=== PATIENT | female | born 1950 | race Caucasian/White ===

== ENCOUNTER 2020-10-02 04:43 | Emergency (ER) | payer MEDICARE, OTHER ==
--- NOTE | 2020-10-02 05:33 | EDM.PDOC ---
ED HPI GENERAL MEDICAL PROBLEM - General Chief Complaint: Flank Pain Stated Complaint: RIGHT SIDE PAIN Time Seen by Provider: 10/02/20 05:02 Source of Information: Reports: Patient History Limitations: Reports: No Limitations - History of Present Illness INITIAL COMMENTS - FREE TEXT/NARRATIVE: Alicia is a 70-year-old female presenting to the ED for evaluation of acute on chronic low back pain. Tonight she was experiencing severe low back pain and right flank pain that was preventing her from sleeping. She initially took 2 Tylenol without any improvement and then took 2 ibuprofen with marked improvement in her symptoms. Alicia is been spending a lot of time sleeping on couches and hard furniture while she cares for her ailing who has multiple medical problems. She is also been quite stressed with his condition and care and makes multiple trips between home and [facility], [facility], and [facility] for his ongoing care of the nephrostomy tube and indwelling [place] catheter. She is quite stressed with all of this and has not really been taken time to take care of herself. Yesterday was the first day that they did not have to travel to one of the hospitals or clinics. That has been since August 24 of this year. She denies any injury although she helps her get around at home. She denies any fever, chills, cough or shortness of breath, nausea, vomiting, or diarrhea, new onset of numbness, tingling, weakness in the arms or legs, urinary symptoms including hematuria, urgency, frequency, or burning with urination. Again she has been under considerable stress due to the medical situation with her . In conversation, she reports that she is simply exhausted. Right Flank Pain Score (Numeric/FACES): 6 - Related Data Allergies Allergy/AdvReac Type Severity Reaction Status Date / Time aspirin [From Percodan] Allergy Dizziness Verified 10/02/20 04:56 oxycodone HCl [From Percodan] Allergy Dizziness Verified 10/02/20 04:56 oxycodone terephthalate Allergy Dizziness Verified 10/02/20 04:56 [From Percodan] Home Meds: Home Meds Acetaminophen [Tylenol] 2 tab PO ASDIRECTED 02/23/14 [History] Hydrochlorothiazide 12.5 mg PO DAILY 02/23/14 [History] lisinopriL [Prinivil] 20 mg PO DAILY 02/23/14 [History] Cyclobenzaprine [Flexeril] 10 mg PO TID PRN #15 tablet 10/02/20 [Rx] Past Medical History Cardiovascular History: Reports: Hypertension Social & Family History - Tobacco Use Tobacco Use Status *Q: Former Tobacco User Used Tobacco, but Quit: Yes Month/Year Tobacco Last Used: 2009 - Caffeine Use Caffeine Use: Reports: Coffee, Soda - Recreational Drug Use Recreational Drug Use: No ED ROS GENERAL - Review of Systems Review Of Systems: See Below Constitutional: Reports: Other (Not sleeping well at nights) HEENT: Reports: No Symptoms Respiratory: Reports: No Symptoms Cardiovascular: Reports: No Symptoms Endocrine: Reports: No Symptoms GI/Abdominal: Reports: No Symptoms : Reports: Flank Pain Musculoskeletal: Reports: Back Pain (Low back and right flank) Skin: Reports: No Symptoms Neurological: Reports: No Symptoms Psychiatric: Reports: Anxiety Hematologic/Lymphatic: Reports: No Symptoms Immunologic: Reports: No Symptoms ED EXAM,LOWER BACK PAIN/INJURY - Physical Exam Exam: See Below Exam Limited By: No Limitations General Appearance: Alert, No Apparent Distress Eye Exam: Bilateral Eye: EOMI, PERRL Head: Atraumatic, Normocephalic Neck: Normal Inspection Respiratory/Chest: No Respiratory Distress, Lungs Clear, Normal Breath Sounds Cardiovascular: Normal Peripheral Pulses, Regular Rate, Rhythm, No Murmur GI/Abdominal: Normal Bowel Sounds, Soft, Non-Tender Back Exam: Full Range of Motion, Vertebral Tenderness (Mild tenderness at L5- S1). No: CVA Tenderness (R), CVA Tenderness (L), Muscle Spasm, Paraspinal Tenderness Extremities: Normal Inspection, Normal Range of Motion Neurological: Alert, Normal Mood/Affect, Normal Dorsiflexion, Normal Plantar Flexion, Normal Gait, No Motor/Sensory Deficits, Oriented x 3 Psychiatric: Anxious Skin Exam: Warm, Dry Course - Vital Signs Last Recorded V/S: Last Vital Signs Temp 36.7 C 10/02/20 04:54 Pulse 85 10/02/20 04:54 Resp 20 10/02/20 04:54 BP 179/108 H 10/02/20 04:54 Pulse Ox 97 10/02/20 04:54 - Orders/Labs/Meds Orders: Active Orders 24 hr Category Date Time Status UA W/MICROSCOPIC [URIN] Stat Lab 10/02/20 05:02 Ordered Labs: Laboratory Tests 10/02/20 10/02/20 Range/Units 05:33 05:33 WBC 9.6 (4.5-11.0) K/uL RBC 4.65 (3.30-5.50) M/uL Hgb 14.6 (12.0-15.0) g/dL Hct 45.0 (36.0-48.0) % MCV 97 (80-98) fL MCH 31 (27-31) pg MCHC 32 (32-36) % Plt Count 264 (150-400) K/uL Neut % (Auto) 73.0 H (36-66) % Lymph % (Auto) 18.6 L (24-44) % [place] % (Auto) 7.2 H (2-6) % Eos % (Auto) 0.9 L (2-4) % Baso % (Auto) 0.3 (0-1) % Sodium 143 (140-148) mmol/L Potassium 4.1 (3.6-5.2) mmol/L Chloride 106 (100-108) mmol/L Carbon Dioxide 24 (21-32) mmol/L Anion Gap 13.0 (5.0-14.0) mmol/L BUN 23 H (7-18) mg/dL Creatinine 0.9 (0.6-1.0) mg/dL Est Cr Clr Drug Dosing 49.82 mL/min Estimated GFR (MDRD) > 60 (>60) Glucose 116 H (74-106) mg/dL Calcium 9.3 (8.5-10.1) mg/dL Total Bilirubin 0.7 (0.2-1.0) mg/dL AST 21 (15-37) U/L ALT 29 (12-78) U/L Alkaline Phosphatase 83 (46-116) U/L Total Protein 6.6 (6.4-8.2) g/dL Albumin 3.6 (3.4-5.0) g/dL Globulin 3.0 (2.3-3.5) g/dL Albumin/Globulin Ratio 1.2 (1.2-2.2) - Re-Assessments/Exams Free Text/Narrative Re-Assessment/Exam: 10/02/20 06:42 I reviewed [facility] labs showing a normal CBC and comprehensive metabolic panel. We were not able to get urine from her, however, she has no CVA tenderness to percussion and has not had any urinary symptoms. I think all in all her pain is due to poor sleeping hygiene, exhaustion from caring for her who is medically unwell, and stress of having to have repeated trips to hospitals and doctors offices daily for the last 2 months. I will give her a small amount of cyclobenzaprine for the muscle spasm in her low back. This may also help her get some sleep. Her son is in from [place] and is helping in the care of the house and of [facility]. Occasions return to the ED were discussed and she was discharged in satisfactory condition. Departure - Departure Time of Disposition: 06:45 Disposition: Home, Self-Care 01 Clinical Impression: Stress reaction, Exhaustion Low back pain Qualifiers: Chronicity: unspecified Back pain laterality: midline Sciatica presence: without sciatica Qualified Code(s): M54.5 - Low back pain - Discharge Information Instructions: Fatigue, Acute Back Pain, Adult Referrals: PCP,None [Primary Care Provider] - Forms: ED Department Discharge Care Plan Goals: I hope that you get some rest and start to take care of yourself. I understand male and is under a great deal of medical care right now and this is putting a toll on you. I have enclosed a prescription for cyclobenzaprine which is a muscle relaxant that may also help you with some sleep. Continue to take the Tylenol and ibuprofen as before as needed. Good luck in God bless. Sepsis Event Note (ED) - Evaluation Sepsis Screening Result: No Definite Risk - Focused Exam Vital Signs: Vital Signs Temp Pulse Resp BP Pulse Ox 10/02/20 04:54 36.7 C 85 20 179/108 H 97 - Problem List & Annotations (1) Exhaustion SNOMED Code(s): 25459664 Code(s): R53.83 - OTHER FATIGUE Status: Acute Priority: Medium Current Visit: Yes (2) Low back pain SNOMED Code(s): 719361422 Code(s): M54.5 - LOW BACK PAIN Status: Acute Priority: Medium Current Visit: Yes Qualifiers: Chronicity: unspecified Back pain laterality: midline Sciatica presence: without sciatica Qualified Code(s): M54.5 - Low back pain (3) Stress reaction SNOMED Code(s): 43443562 Code(s): F43.0 - ACUTE STRESS REACTION Status: Acute Priority: Medium Current Visit: Yes - Problem List Review Problem List Initiated/Reviewed/Updated: Yes - My Orders Last 24 Hours: My Active Orders 10/02/20 05:02 UA W/MICROSCOPIC [URIN] Stat - Assessment/Plan Last 24 Hours: My Active Orders 10/02/20 05:02 UA W/MICROSCOPIC [URIN] Stat
== END 2020-10-02 06:58 | disposition home or self-care (01) ==
LOC: JP.ED 04:43
DX: M54.5 Low back pain (principal); R53.83 Other fatigue; F43.9 Reaction to severe stress, unspecified; I10 Essential (primary) hypertension; Z88.5 Allergy status to narcotic agent; Z88.8 Allergy status to other drugs, medicaments and biological substances; Z79.899 Other long term (current) drug therapy; Z87.891 Personal history of nicotine dependence
CPT/HCPCS: 36415; 80053; 85025; 99283; 99284

== ENCOUNTER 2022-03-18 15:04 | Emergency (ER) | payer OTHER ==
[2022-03-18 17:59] LABS: ESTIMATED GFR 59 mL/min (>60); TROPONIN I HIGH SENSITIVITY 25.5 pg/mL (<=60.3)
[2022-03-18] MEDS ORDERED: Potassium Chloride 10 MEQ in Premix Bag 1 BAG IV ONE (18:09)
[2022-03-18] MEDS ORDERED: Potassium Chloride 20 MEQ Tab.ER PO ONE (18:09)
[2022-03-18] MEDS ORDERED: Sodium Chloride 0.9% 1,000 ML IV SCH (18:15)
[2022-03-18 19:46] LABS: CORONAVIRUS COVID-19 NAA NEGATIVE (NEGATIVE)
== END 2022-03-18 20:51 | disposition home or self-care (01) ==
LOC: JP.ED 15:04
DX: N30.00 Acute cystitis without hematuria (principal); E87.6 Hypokalemia; I10 Essential (primary) hypertension; Z87.891 Personal history of nicotine dependence; Z88.8 Allergy status to other drugs, medicaments and biological substances; Z88.5 Allergy status to narcotic agent; Z79.899 Other long term (current) drug therapy; Z20.822 Contact with and (suspected) exposure to COVID-19
CPT/HCPCS: 0241U; 36415; 71046; 80053; 81001; 83605; 83690; 83735; 84443; 84484; 85025; 87086; 87088; 87186; 93005; 96365; 99285; A9270; J3480; J7030

== ENCOUNTER 2022-03-27 15:05 | Inpatient (IN) | payer MEDICARE, OTHER ==
[2022-03-27] MEDS ORDERED: Sodium Chloride 0.9% 10 ML Syringe FLUSH PRN (16:37)
[2022-03-27] MEDS ORDERED: Lactated Ringers 1,000 ML IV SCH (16:45)
[2022-03-27] MEDS ORDERED: Sodium Chloride 0.9% 50 ML IV ONE (16:53)
[2022-03-27] MEDS ORDERED: Sodium Chloride 0.9% 10 ML Syringe FLUSH ONE (16:53)
[2022-03-27] MEDS ORDERED: Iopamidol 612 MG/ML 100 ML Bottle IV ONE (16:53)
[2022-03-27 17:18] LABS: ESTIMATED GFR 59 mL/min (>60); TROPONIN I HIGH SENSITIVITY 12.7 pg/mL (<=60.3)
[2022-03-27] MEDS ORDERED: Piperacillin/Tazobactam 3.375 GM in Sodium Chloride 0.9% 50 ML IV STA (18:21)
[2022-03-27] MEDS ORDERED: Melatonin 3 MG Tab PO PRN (19:40)
[2022-03-27] MEDS ORDERED: Albuterol 0.083% 2.5 MG/3 ML Neb Soln NEB PRN (19:40)
[2022-03-27] MEDS ORDERED: HYDROmorphone 2 MG Tab PO PRN (19:40)
[2022-03-27] MEDS ORDERED: Ondansetron 4 MG Tab.DIS PO PRN (19:40)
[2022-03-27] MEDS ORDERED: Acetaminophen 325 MG Tab PO PRN (19:40)
[2022-03-27] MEDS ORDERED: Magnesium Hydroxide 400 MG/5 ML Susp 30 ML Cup PO PRN (19:40)
[2022-03-27] MEDS: Lactobacillus Rhamnosus GG (Probiotic) Cap PO SCH (20:52)
[2022-03-27] MEDS: Potassium Chloride 10 MEQ in Premix Bag 1 BAG IV SCH ×3 (20:53→23:22)
[2022-03-27] MEDS: Dextrose 5%-Lactated Ringers 1,000 ML IV SCH (20:58)
[2022-03-27] MEDS: HYDROmorphone 1 MG/ML Syringe IVPUSH PRN (21:44)
[2022-03-27] MEDS: Ondansetron 4 MG/2 ML SDV IV PRN (21:45)
[2022-03-27] MEDS ORDERED: Calcium Carbonate 500 MG Tab.Chew PO PRN (21:46)
[2022-03-28] MEDS: Potassium Chloride 10 MEQ in Premix Bag 1 BAG IV SCH (01:17)
[2022-03-28] MEDS: Piperacillin/Tazobactam 3.375 GM in Sodium Chloride 0.9% 50 ML IV SCH ×2 (03:23→06:50)
[2022-03-28] MEDS: Dextrose 5%-Lactated Ringers 1,000 ML IV SCH (06:57)
[2022-03-28] MEDS: Ondansetron 4 MG/2 ML SDV IV PRN (07:42)
[2022-03-28] MEDS: HYDROmorphone 1 MG/ML Syringe IVPUSH PRN (07:42)
[2022-03-28] MEDS: Lactobacillus Rhamnosus GG (Probiotic) Cap PO SCH (09:36)
[2022-03-28] MEDS: Pantoprazole 40 MG Vial IV SCH (09:36)
[2022-03-28] MEDS ORDERED: Rocuronium 50 MG/5 ML Vial ONE (10:36)
[2022-03-28] MEDS ORDERED: Dexamethasone 4 MG/ML SDV ONE (10:36)
[2022-03-28] MEDS ORDERED: Propofol 200 MG/20 ML SDV ONE (10:36)
[2022-03-28] MEDS ORDERED: Succinylcholine 200 MG/10 ML MDV ONE (10:36)
[2022-03-28] MEDS ORDERED: fentaNYL 250 MCG/5 ML SDV ONE (10:36)
[2022-03-28] MEDS ORDERED: Glycopyrrolate 0.2 MG/ML 5 ML MDV ONE (10:36)
[2022-03-28] MEDS ORDERED: Ondansetron 4 MG/2 ML SDV ONE (10:36)
[2022-03-28] MEDS ORDERED: Neostigmine Methylsulfate 1 MG/ML 5 ML Syringe ONE (10:36)
[2022-03-28] MEDS ORDERED: Naloxone 0.4 MG/ML SDV IV PRN (11:30)
[2022-03-28] MEDS ORDERED: Ropivacaine 40 ML, dexAMETHasone 8 MG, EPINEPHrine 0.4 MG, Sodium Chloride 0.9% 37.6 ML NERVRT SCH ×4 (11:30)
[2022-03-28] MEDS ORDERED: Ketamine 500 MG/5 ML MDV IV SCH (11:30)
[2022-03-28] MEDS ORDERED: Ketamine 17 MG in Sodium Chloride 0.9% 19.83 ML IV SCH (11:30)
[2022-03-28] MEDS: Piperacillin/Tazobactam/Dext 3.375 GM in Premix Bag 1 BAG IV SCH ×2 (11:36→17:13)
[2022-03-28] MEDS ORDERED: Scopolamine 1.5 MG Transdermal Patch TOP SCH (12:00)
[2022-03-28] MEDS ORDERED: Meropenem 500 MG SDV ONE (12:48)
[2022-03-28] MEDS ORDERED: HYDROmorphone/Normal Saline 6 MG/30 ML PCA Vial IV PRN (13:17)
[2022-03-28] MEDS ORDERED: diphenhydrAMINE 50 MG/ML SDV IVPUSH PRN ×2 (13:17→17:00)
[2022-03-28] MEDS ORDERED: Ondansetron 4 MG/2 ML SDV IVPUSH PRN (13:17)
[2022-03-28] MEDS ORDERED: Naloxone 0.4 MG/ML SDV IVPUSH PRN (13:17)
[2022-03-28] MEDS ORDERED: diphenhydrAMINE 25 MG Cap PO PRN (13:17)
[2022-03-28] MEDS ORDERED: Linezolid 600 MG/300 ML Premix Bag IRR ONE (13:41)
[2022-03-28] MEDS: HYDROmorphone/Normal Saline 6 MG/30 ML PCA Vial IV PRN (14:13)
[2022-03-28] MEDS ORDERED: Lactated Ringers 1,000 ML ONE (14:24)
[2022-03-28] MEDS ORDERED: Cyclobenzaprine 10 MG Tab PO PRN (16:49)
[2022-03-28] MEDS ORDERED: hydrOXYzine HCL 100 MG/2 ML SDV IM PRN (17:00)
[2022-03-28] MEDS ORDERED: Acetaminophen 500 MG Tab PO PRN (17:00)
[2022-03-28] MEDS ORDERED: Labetalol 20 MG/4 ML Syringe IVPUSH PRN (17:00)
[2022-03-28] MEDS: MVI, Adult with Vitamin K 10 ML, Thiamine 200 MG, Zinc/Copper/Manganese/Selenium 1 ML i... IV SCH ×4 (17:13)
[2022-03-28] MEDS: Acetaminophen 500 MG Tab PO SCH (17:17)
[2022-03-28] MEDS ORDERED: Lactated Ringers 500 ML IV ONE (20:32)
[2022-03-29] MEDS: Piperacillin/Tazobactam/Dext 3.375 GM in Premix Bag 1 BAG IV SCH ×5 (00:28→23:29)
[2022-03-29] MEDS: Dextrose 5%-Lactated Ringers 1,000 ML IV SCH ×2 (01:41→13:05)
[2022-03-29] MEDS: Acetaminophen 500 MG Tab PO SCH ×3 (01:41→17:12)
[2022-03-29] MEDS ORDERED: Lactated Ringers 500 ML IV ONE ×2 (02:12→13:30)
[2022-03-29 05:24] LABS: ESTIMATED GFR 59 mL/min (>60)
[2022-03-29] MEDS: Lisinopril 20 MG Tab PO SCH (08:20)
[2022-03-29] MEDS: Pantoprazole 40 MG Vial IV SCH (08:20)
[2022-03-29] MEDS: Celecoxib 200 MG Cap PO SCH ×2 (08:20→20:58)
[2022-03-29] MEDS: HYDROmorphone/Normal Saline 6 MG/30 ML PCA Vial IV PRN (16:14)
[2022-03-29] MEDS: MVI, Adult with Vitamin K 10 ML, Thiamine 200 MG, Zinc/Copper/Manganese/Selenium 1 ML i... IV SCH ×4 (16:16)
[2022-03-29] MEDS ORDERED: Lactated Ringers 500 ML IV SCH (17:30)
[2022-03-29] MEDS ORDERED: Dextrose 5%-Lactated Ringers 1,000 ML IV SCH (18:00)
[2022-03-30] MEDS ORDERED: Lactated Ringers 500 ML IV ONE
[2022-03-30] MEDS: Acetaminophen 500 MG Tab PO SCH ×3 (01:00→17:48)
[2022-03-30] MEDS ORDERED: Iopamidol 612 MG/ML 50 ML SDV PO ONE (04:26)
[2022-03-30] MEDS: Piperacillin/Tazobactam/Dext 3.375 GM in Premix Bag 1 BAG IV SCH ×3 (05:17→18:34)
[2022-03-30 06:02] LABS: ESTIMATED GFR 59 mL/min (>60)
[2022-03-30] MEDS: Lisinopril 20 MG Tab PO SCH (08:39)
[2022-03-30] MEDS: Celecoxib 200 MG Cap PO SCH ×2 (08:39→20:26)
[2022-03-30] MEDS: Pantoprazole 40 MG Vial IV SCH (08:39)
[2022-03-30] MEDS: Magnesium Sulfate/Water 2 GM/50 ML BAG IV SCH ×3 (09:08→21:21)
[2022-03-30] MEDS ORDERED: Furosemide 40 MG/4 ML VIAL IVPUSH ONE (10:55)
[2022-03-30] MEDS: Albumin Human 25 GM in Premix Bag 1 BAG IV SCH (13:16)
[2022-03-30] MEDS: Dextrose 5%-Lactated Ringers 1,000 ML IV SCH (15:54)
[2022-03-30] MEDS: Ondansetron 4 MG/2 ML SDV IVPUSH PRN ×2 (17:48→21:25)
[2022-03-30] MEDS: Metoclopramide 10 MG/2 ML SDV IVPUSH PRN (19:14)
[2022-03-31] MEDS: Piperacillin/Tazobactam/Dext 3.375 GM in Premix Bag 1 BAG IV SCH ×4 (00:12→17:35)
[2022-03-31] MEDS: Metoclopramide 10 MG/2 ML SDV IVPUSH PRN (01:16)
[2022-03-31] MEDS: HYDROmorphone/Normal Saline 6 MG/30 ML PCA Vial IV PRN (02:08)
[2022-03-31] MEDS: Acetaminophen 500 MG Tab PO SCH ×3 (02:31→17:28)
[2022-03-31] MEDS: Magnesium Sulfate/Water 2 GM/50 ML BAG IV SCH ×4 (03:09→21:27)
[2022-03-31] MEDS: Ondansetron 4 MG/2 ML SDV IVPUSH PRN (05:10)
[2022-03-31 05:23] LABS: ESTIMATED GFR 68 mL/min (>60)
[2022-03-31] MEDS ORDERED: Lidocaine 1% with EPINEPHrine 1:100,000 50 ML MDV ONE (06:41)
[2022-03-31] MEDS ORDERED: Bupivacaine 0.5% 30 ML SDV ONE (06:41)
[2022-03-31] MEDS ORDERED: Meropenem 500 MG SDV ONE (06:41)
[2022-03-31] MEDS ORDERED: Ropivacaine 40 ML, dexAMETHasone 8 MG, EPINEPHrine 0.4 MG, Sodium Chloride 0.9% 37.6 ML NERVRT SCH ×4 (07:30)
[2022-03-31] MEDS ORDERED: Lidocaine 2% Jelly 10 ML Urojet ONE (08:30)
[2022-03-31] MEDS: LORazepam 2 MG/ML SDV IVPUSH PRN (08:35)
[2022-03-31] MEDS ORDERED: Lidocaine 2% Jelly 10 ML Urojet MUCMEM ONE (09:00)
[2022-03-31] MEDS: Furosemide 20 MG/2 ML VIAL IVPUSH SCH ×2 (09:43→17:27)
[2022-03-31] MEDS: Potassium Chloride 10 MEQ in Premix Bag 1 BAG IV SCH ×4 (09:46→14:49)
[2022-03-31] MEDS: Pantoprazole 40 MG Vial IV SCH (09:51)
[2022-03-31] MEDS: Celecoxib 200 MG Cap PO SCH ×2 (10:23→21:27)
[2022-03-31] MEDS: Lisinopril 20 MG Tab PO SCH (10:23)
[2022-03-31] MEDS: Albumin Human 25 GM in Premix Bag 1 BAG IV SCH (12:10)
[2022-04-01] MEDS: Piperacillin/Tazobactam/Dext 3.375 GM in Premix Bag 1 BAG IV SCH ×4 (00:07→19:13)
[2022-04-01] MEDS: Acetaminophen 500 MG Tab PO SCH ×3 (03:41→18:45)
[2022-04-01] MEDS: Magnesium Sulfate/Water 2 GM/50 ML BAG IV SCH ×4 (04:06→21:36)
[2022-04-01 04:47] LABS: ESTIMATED GFR 78 mL/min (>60)
[2022-04-01] MEDS: Dextrose 5%-Lactated Ringers 1,000 ML IV SCH (05:02)
[2022-04-01] MEDS ORDERED: Propofol 200 MG/20 ML SDV ONE ×2 (07:02→07:57)
[2022-04-01] MEDS ORDERED: Ropivacaine 40 ML, dexAMETHasone 8 MG, EPINEPHrine 0.4 MG, Sodium Chloride 0.9% 37.6 ML NERVRT SCH ×4 (07:30)
[2022-04-01] MEDS: Bupivacaine 0.5%/EPINEPHrine 1:200,000 50 ML MDV ONE ×2 (07:31→07:51)
[2022-04-01] MEDS: Lidocaine 1% 50 ML MDV ONE ×2 (07:31→07:51)
[2022-04-01] MEDS: Meropenem 500 MG SDV ONE ×2 (07:40→07:54)
[2022-04-01] MEDS: Pantoprazole 40 MG Vial IV SCH (09:05)
[2022-04-01] MEDS: Lisinopril 20 MG Tab PO SCH (09:06)
[2022-04-01] MEDS: Celecoxib 200 MG Cap PO SCH ×2 (09:06→21:35)
[2022-04-01] MEDS ORDERED: Potassium Chloride 20 MEQ in Premix Bag 1 BAG IV ONE (10:00)
[2022-04-01] MEDS ORDERED: Furosemide 20 MG/2 ML VIAL IV ONE (10:30)
[2022-04-01] MEDS: HYDROmorphone/Normal Saline 6 MG/30 ML PCA Vial IV PRN (10:31)
[2022-04-01] MEDS: Albumin Human 25 GM in Premix Bag 1 BAG IV SCH (11:57)
[2022-04-01] MEDS: Potassium Phosphates 22.5 MMOLE in Sodium Chloride 0.9% 100 ML IV SCH ×2 (13:09→17:56)
[2022-04-01] MEDS: Azithromycin 125 MG in Sodium Chloride 0.9% 100 ML IV SCH (14:24)
[2022-04-01] MEDS ORDERED: Dextrose 5%-Lactated Ringers 1,000 ML IV SCH (16:00)
[2022-04-01] MEDS: 1: AA 5%/Calcium/D15W/Lytes 1,000 ML with MVI, Adult with Vitamin K 10 ML, Zinc/Copper/M IV SCH ×3 (16:51)
[2022-04-02] MEDS: Piperacillin/Tazobactam/Dext 3.375 GM in Premix Bag 1 BAG IV SCH ×2 (00:11→05:05)
[2022-04-02] MEDS: Acetaminophen 500 MG Tab PO SCH ×3 (02:26→17:27)
[2022-04-02] MEDS: Azithromycin 125 MG in Sodium Chloride 0.9% 100 ML IV SCH ×2 (02:26→14:08)
[2022-04-02] MEDS: Magnesium Sulfate/Water 2 GM/50 ML BAG IV SCH (04:54)
[2022-04-02] MEDS: 1: AA 5%/Calcium/D15W/Lytes 1,000 ML with MVI, Adult with Vitamin K 10 ML, Zinc/Copper/M IV SCH ×6 (04:55→17:15)
[2022-04-02 05:21] LABS: ESTIMATED GFR 91 mL/min (>60)
[2022-04-02] MEDS: Lisinopril 20 MG Tab PO SCH (08:40)
[2022-04-02] MEDS: Pantoprazole 40 MG Vial IV SCH (08:40)
[2022-04-02] MEDS: Celecoxib 200 MG Cap PO SCH ×2 (08:40→20:52)
[2022-04-02] MEDS ORDERED: Furosemide 20 MG/2 ML VIAL IV SCH (09:00)
[2022-04-02] MEDS: Albumin Human 25 GM in Premix Bag 1 BAG IV SCH (12:29)
[2022-04-02] MEDS ORDERED: Furosemide 40 MG/4 ML VIAL IVPUSH ONE (15:30)
[2022-04-02] MEDS: Ondansetron 4 MG/2 ML SDV IVPUSH PRN (18:41)
[2022-04-02] MEDS: LORazepam 2 MG/ML SDV IVPUSH PRN (20:53)
[2022-04-03] MEDS: Acetaminophen 500 MG Tab PO SCH ×3 (02:21→17:11)
[2022-04-03] MEDS: Azithromycin 125 MG in Sodium Chloride 0.9% 100 ML IV SCH ×2 (02:30→14:00)
[2022-04-03] MEDS: 1: AA 5%/Calcium/D15W/Lytes 1,000 ML with MVI, Adult with Vitamin K 10 ML, Zinc/Copper/M IV SCH ×6 (05:37→17:28)
[2022-04-03 05:41] LABS: ESTIMATED GFR 95 mL/min (>60)
[2022-04-03] MEDS: Pantoprazole 40 MG Tab.CR PO SCH (07:20)
[2022-04-03] MEDS: Lisinopril 20 MG Tab PO SCH (09:13)
[2022-04-03] MEDS: Lactobacillus Rhamnosus GG (Probiotic) Cap PO SCH ×2 (09:13→21:39)
[2022-04-03] MEDS: Celecoxib 200 MG Cap PO SCH ×2 (09:13→21:39)
[2022-04-03] MEDS ORDERED: Furosemide 20 MG/2 ML VIAL IV ONE (10:00)
[2022-04-03] MEDS ORDERED: Calcium Gluconate 2 GM in Sodium Chloride 0.9% 100 ML IV ONE (10:00)
[2022-04-03] MEDS: Albumin Human 25 GM in Premix Bag 1 BAG IV SCH (13:01)
[2022-04-03] MEDS: Ondansetron 4 MG/2 ML SDV IVPUSH PRN (17:32)
[2022-04-03] MEDS: Metoclopramide 10 MG/2 ML SDV IVPUSH PRN (18:10)
[2022-04-03] MEDS: HYDROmorphone/Normal Saline 6 MG/30 ML PCA Vial IV PRN (21:34)
[2022-04-04] MEDS: Azithromycin 125 MG in Sodium Chloride 0.9% 100 ML IV SCH ×2 (01:35→14:19)
[2022-04-04] MEDS: Acetaminophen 500 MG Tab PO SCH ×3 (01:35→17:41)
[2022-04-04] MEDS: 1: AA 5%/Calcium/D15W/Lytes 1,000 ML with MVI, Adult with Vitamin K 10 ML, Zinc/Copper/M IV SCH ×3 (05:21)
[2022-04-04 05:30] LABS: ESTIMATED GFR 99 mL/min (>60)
[2022-04-04] MEDS: Pantoprazole 40 MG Tab.CR PO SCH (08:16)
[2022-04-04] MEDS: Scopolamine 1.5 MG Transdermal Patch TOP SCH (08:55)
[2022-04-04] MEDS: Metoclopramide 10 MG/2 ML SDV IVPUSH PRN ×2 (08:55→23:30)
[2022-04-04] MEDS: Furosemide 20 MG/2 ML VIAL IVPUSH SCH ×2 (08:56→17:20)
[2022-04-04] MEDS: Celecoxib 200 MG Cap PO SCH ×2 (10:11→20:27)
[2022-04-04] MEDS: Docusate Sodium 100 MG Cap PO SCH ×2 (10:11→20:27)
[2022-04-04] MEDS: Lisinopril 20 MG Tab PO SCH (10:11)
[2022-04-04] MEDS: Bisacodyl 5 MG Tab PO SCH ×2 (10:11→20:27)
[2022-04-04] MEDS: Lactobacillus Rhamnosus GG (Probiotic) Cap PO SCH ×2 (10:12→20:27)
[2022-04-04] MEDS: Potassium Phosphates 15 MMOLE in Sodium Chloride 0.9% 100 ML IV SCH ×2 (10:14→14:20)
[2022-04-04] MEDS: Ondansetron 4 MG/2 ML SDV IVPUSH PRN (14:28)
[2022-04-04] MEDS ORDERED: 1: AA 5%/Calcium/D15W/Lytes 2,000 ML with MVI, Adult with Vitamin K 10 ML, Zinc/Copper/M IV SCH ×3 (16:30)
[2022-04-04] MEDS: HYDROmorphone/Normal Saline 6 MG/30 ML PCA Vial IV PRN (23:35)
[2022-04-04] MEDS: Aluminum Hydroxide/Magnesium Hydroxide/Simethicone Susp 30 ML Cup PO PRN (23:59)
[2022-04-05] MEDS: Azithromycin 125 MG in Sodium Chloride 0.9% 100 ML IV SCH ×2 (02:26→13:13)
[2022-04-05] MEDS: Acetaminophen 500 MG Tab PO SCH ×3 (02:28→17:07)
[2022-04-05 05:37] LABS: ESTIMATED GFR 99 mL/min (>60)
[2022-04-05] MEDS: Pantoprazole 40 MG Tab.CR PO SCH ×2 (07:32→21:36)
[2022-04-05] MEDS ORDERED: HYDROmorphone 2 MG Tab PO PRN (07:52)
[2022-04-05] MEDS ORDERED: Central Total Parenteral Nutrition Bag SCH (08:00)
[2022-04-05] MEDS: Celecoxib 200 MG Cap PO SCH ×3 (10:06→21:36)
[2022-04-05] MEDS: Lactobacillus Rhamnosus GG (Probiotic) Cap PO SCH ×2 (10:06→21:36)
[2022-04-05] MEDS: Docusate Sodium 100 MG Cap PO SCH ×2 (10:06→21:36)
[2022-04-05] MEDS: Bisacodyl 5 MG Tab PO SCH ×2 (10:07→21:36)
[2022-04-05] MEDS: SCOPOLAMINE PATCH CHECK TOP SCH (10:08)
[2022-04-05] MEDS: Lisinopril 20 MG Tab PO SCH (10:08)
[2022-04-05] MEDS: Furosemide 20 MG/2 ML VIAL IVPUSH SCH ×2 (10:09→15:42)
[2022-04-05] MEDS: Aluminum Hydroxide/Magnesium Hydroxide/Simethicone Susp 30 ML Cup PO PRN ×2 (13:33→19:18)
[2022-04-05] MEDS: Ondansetron 4 MG/2 ML SDV IVPUSH PRN (17:02)
[2022-04-05] MEDS: Metoclopramide 10 MG/2 ML SDV IVPUSH PRN (20:42)
[2022-04-06] MEDS: Acetaminophen 500 MG Tab PO SCH ×3 (01:36→17:31)
[2022-04-06] MEDS: Azithromycin 125 MG in Sodium Chloride 0.9% 100 ML IV SCH ×2 (01:37→14:18)
[2022-04-06 05:33] LABS: ESTIMATED GFR 95 mL/min (>60)
[2022-04-06] MEDS ORDERED: Iopamidol 612 MG/ML 30 ML SDV PO ONE (07:57)
[2022-04-06] MEDS ORDERED: Sodium Chloride 0.9% 10 ML Syringe FLUSH PRN (07:57)
[2022-04-06] MEDS ORDERED: Iopamidol 612 MG/ML 100 ML Bottle IV PRN (07:58)
[2022-04-06] MEDS ORDERED: Sodium Chloride 0.9% 75 ML IV SCH (08:00)
[2022-04-06] MEDS: Pantoprazole 40 MG Tab.CR PO SCH ×2 (09:05→20:06)
[2022-04-06] MEDS: Celecoxib 200 MG Cap PO SCH ×2 (09:06→20:05)
[2022-04-06] MEDS: Bisacodyl 5 MG Tab PO SCH ×2 (09:06→20:06)
[2022-04-06] MEDS: Lisinopril 20 MG Tab PO SCH (09:06)
[2022-04-06] MEDS: Docusate Sodium 100 MG Cap PO SCH ×2 (09:06→20:05)
[2022-04-06] MEDS: Lactobacillus Rhamnosus GG (Probiotic) Cap PO SCH ×2 (09:06→20:05)
[2022-04-06] MEDS: SCOPOLAMINE PATCH CHECK TOP SCH (09:08)
[2022-04-06] MEDS: Ondansetron 4 MG/2 ML SDV IVPUSH PRN (21:12)
[2022-04-06] MEDS: Aluminum Hydroxide/Magnesium Hydroxide/Simethicone Susp 30 ML Cup PO PRN (21:12)
[2022-04-06] MEDS: Metoclopramide 10 MG/2 ML SDV IVPUSH PRN (22:38)
[2022-04-07] MEDS: Acetaminophen 500 MG Tab PO SCH ×3 (02:23→17:45)
[2022-04-07] MEDS: Azithromycin 125 MG in Sodium Chloride 0.9% 100 ML IV SCH ×2 (02:25→14:35)
[2022-04-07 05:29] LABS: ESTIMATED GFR 95 mL/min (>60)
[2022-04-07] MEDS: Ondansetron 4 MG/2 ML SDV IVPUSH PRN (07:38)
[2022-04-07] MEDS: Scopolamine 1.5 MG Transdermal Patch TOP SCH (09:40)
[2022-04-07] MEDS: Metoclopramide 10 MG/2 ML SDV IVPUSH SCH ×3 (09:40→20:18)
[2022-04-07] MEDS: Celecoxib 200 MG Cap PO SCH ×2 (09:40→20:22)
[2022-04-07] MEDS: Lactobacillus Rhamnosus GG (Probiotic) Cap PO SCH ×2 (09:40→20:22)
[2022-04-07] MEDS: Docusate Sodium 100 MG Cap PO SCH ×2 (09:41→20:22)
[2022-04-07] MEDS: Bisacodyl 5 MG Tab PO SCH ×2 (09:41→20:22)
[2022-04-07] MEDS: SCOPOLAMINE PATCH CHECK TOP SCH (09:41)
[2022-04-07] MEDS: Lisinopril 20 MG Tab PO SCH (09:42)
[2022-04-07] MEDS: Pantoprazole 40 MG Tab.CR PO SCH ×2 (09:42→20:24)
[2022-04-08] MEDS: Acetaminophen 500 MG Tab PO SCH ×3 (02:51→18:18)
[2022-04-08] MEDS: Metoclopramide 10 MG/2 ML SDV IVPUSH SCH ×4 (02:54→19:41)
[2022-04-08] MEDS: Azithromycin 125 MG in Sodium Chloride 0.9% 100 ML IV SCH (02:54)
[2022-04-08 05:20] LABS: ESTIMATED GFR 95 mL/min (>60)
[2022-04-08] MEDS ORDERED: Iopamidol 612 MG/ML 50 ML SDV PO ONE (08:35)
[2022-04-08] MEDS: Ondansetron 4 MG/2 ML SDV IVPUSH PRN (10:26)
[2022-04-08] MEDS: Bisacodyl 5 MG Tab PO SCH ×2 (10:27→21:37)
[2022-04-08] MEDS: Lactobacillus Rhamnosus GG (Probiotic) Cap PO SCH ×2 (10:27→21:37)
[2022-04-08] MEDS: Docusate Sodium 100 MG Cap PO SCH ×2 (10:28→21:37)
[2022-04-08] MEDS: Celecoxib 200 MG Cap PO SCH ×2 (10:28→21:37)
[2022-04-08] MEDS: Pantoprazole 40 MG Tab.CR PO SCH ×2 (10:29→21:37)
[2022-04-08] MEDS: SCOPOLAMINE PATCH CHECK TOP SCH (10:29)
[2022-04-08] MEDS: Lisinopril 20 MG Tab PO SCH (10:29)
[2022-04-08] MEDS: AA 5%/Calcium/D15W/Lytes 2,000 ML with MVI, Adult with Vitamin K 10 ML, Zinc/Copper/Man... IV SCH ×3 (11:42)
[2022-04-09] MEDS: Ondansetron 4 MG/2 ML SDV IVPUSH PRN (00:25)
[2022-04-09] MEDS: Metoclopramide 10 MG/2 ML SDV IVPUSH SCH ×2 (01:51→11:58)
[2022-04-09] MEDS: Acetaminophen 500 MG Tab PO SCH ×4 (02:04→22:21)
[2022-04-09 05:12] LABS: ESTIMATED GFR 91 mL/min (>60)
[2022-04-09] MEDS ORDERED: Lidocaine 1% with EPINEPHrine 1:100,000 50 ML MDV ONE (06:55)
[2022-04-09] MEDS ORDERED: Bupivacaine 0.5% 30 ML SDV ONE (06:55)
[2022-04-09] MEDS ORDERED: Meropenem 500 MG SDV ONE (06:55)
[2022-04-09] MEDS ORDERED: Rocuronium 50 MG/5 ML Vial ONE (07:08)
[2022-04-09] MEDS ORDERED: fentaNYL 250 MCG/5 ML SDV ONE (07:08)
[2022-04-09] MEDS ORDERED: Neostigmine Methylsulfate 1 MG/ML 5 ML Syringe ONE (07:08)
[2022-04-09] MEDS ORDERED: Succinylcholine 200 MG/10 ML MDV ONE (07:08)
[2022-04-09] MEDS ORDERED: Dexamethasone 4 MG/ML SDV ONE (07:08)
[2022-04-09] MEDS ORDERED: Glycopyrrolate 0.2 MG/ML 5 ML MDV ONE (07:08)
[2022-04-09] MEDS ORDERED: Propofol 200 MG/20 ML SDV ONE (07:08)
[2022-04-09] MEDS ORDERED: Ondansetron 4 MG/2 ML SDV ONE (07:08)
[2022-04-09] MEDS ORDERED: Ketamine 17 MG in Sodium Chloride 0.9% 19.83 ML IV SCH (07:30)
[2022-04-09] MEDS ORDERED: cefOXitin 2 GM in Sodium Chloride 0.9% 50 ML IV ONE (07:30)
[2022-04-09] MEDS ORDERED: Ketamine 500 MG/5 ML MDV IV SCH (07:30)
[2022-04-09] MEDS ORDERED: Lactated Ringers 1,000 ML ONE (08:23)
[2022-04-09] MEDS ORDERED: fentaNYL 100 MCG/2 ML SDV ONE (09:30)
[2022-04-09] MEDS ORDERED: Dextrose 5%-Lactated Ringers 1,000 ML IV SCH (10:30)
[2022-04-09] MEDS: HYDROmorphone/Normal Saline 6 MG/30 ML PCA Vial IV PRN (10:35)
[2022-04-09] MEDS: SCOPOLAMINE PATCH CHECK TOP SCH (10:45)
[2022-04-09] MEDS ORDERED: Acetaminophen 500 MG Tab PO PRN (11:00)
[2022-04-09] MEDS ORDERED: diphenhydrAMINE 50 MG/ML SDV IVPUSH PRN (11:00)
[2022-04-09] MEDS ORDERED: Naloxone 0.4 MG/ML SDV IV PRN (11:00)
[2022-04-09] MEDS ORDERED: Labetalol 20 MG/4 ML Syringe IVPUSH PRN (11:00)
[2022-04-09] MEDS: cefOXitin 2 GM in Sodium Chloride 0.9% 50 ML IV SCH ×3 (11:25→22:22)
[2022-04-09] MEDS: Pantoprazole 40 MG Vial IVPUSH SCH (11:26)
[2022-04-09] MEDS: Celecoxib 200 MG Cap PO SCH (11:58)
[2022-04-09] MEDS: Docusate Sodium 100 MG Cap PO SCH (11:58)
[2022-04-09] MEDS: Pantoprazole 40 MG Tab.CR PO SCH (11:58)
[2022-04-09] MEDS: Bisacodyl 5 MG Tab PO SCH (11:58)
[2022-04-09] MEDS: Lactobacillus Rhamnosus GG (Probiotic) Cap PO SCH (11:58)
[2022-04-09] MEDS: Lisinopril 20 MG Tab PO SCH (12:45)
[2022-04-09] MEDS ORDERED: AA 5%/Calcium/D15W/Lytes 2,000 ML with MVI, Adult with Vitamin K 10 ML, Zinc/Copper/Man... IV SCH ×3 (13:30)
[2022-04-09] MEDS: AA 5%/Calcium/D15W/Lytes 2,000 ML with MVI, Adult with Vitamin K 10 ML, Zinc/Copper/Man... IV SCH ×3 (14:50)
[2022-04-09] MEDS: Heparin Sodium 5,000 Units/ML Vial SUBCUT SCH (17:46)
[2022-04-09] MEDS ORDERED: Insulin Lispro 100 Unit/ML 3 ML KwikPen SUBCUT SCH (22:00)
[2022-04-09] MEDS ORDERED: Insulin Lispro 100 Units/ML 3 ML Vial SUBCUT ONE (22:36)
[2022-04-09] MEDS ORDERED: Glucagon,Human Recombinant 1 MG Vial IM PRN (22:36)
[2022-04-09] MEDS ORDERED: 50% Dextrose in Water 50 ML Syringe IVPUSH PRN (22:36)
[2022-04-10] MEDS ORDERED: Iopamidol 612 MG/ML 50 ML SDV PO ONE (01:59)
[2022-04-10] MEDS ORDERED: Insulin Lispro 100 Unit/ML 3 ML KwikPen SUBCUT SCH (03:00)
[2022-04-10] MEDS: Insulin Lispro 100 Unit/ML 3 ML KwikPen SUBCUT SCH ×4 (04:49→21:18)
[2022-04-10] MEDS: cefOXitin 2 GM in Sodium Chloride 0.9% 50 ML IV SCH ×2 (04:51→10:56)
[2022-04-10 04:56] LABS: ESTIMATED GFR 78 mL/min (>60)
[2022-04-10] MEDS: Acetaminophen 500 MG Tab PO SCH ×3 (05:33→21:18)
[2022-04-10] MEDS: Heparin Sodium 5,000 Units/ML Vial SUBCUT SCH ×2 (05:33→17:04)
[2022-04-10] MEDS: SCOPOLAMINE PATCH CHECK TOP SCH ×2 (08:57→09:00)
[2022-04-10] MEDS: Celecoxib 200 MG Cap PO SCH ×2 (08:57→21:18)
[2022-04-10] MEDS: Scopolamine 1.5 MG Transdermal Patch TOP SCH (08:58)
[2022-04-10] MEDS: Lisinopril 20 MG Tab PO SCH (08:58)
[2022-04-10] MEDS: Pantoprazole 40 MG Vial IVPUSH SCH (10:59)
[2022-04-10] MEDS: Metoclopramide 10 MG/2 ML SDV IVPUSH PRN (12:35)
[2022-04-10] MEDS: HYDROmorphone/Normal Saline 6 MG/30 ML PCA Vial IV PRN (13:24)
[2022-04-10] MEDS: AA 5%/Calcium/D15W/Lytes 2,000 ML with MVI, Adult with Vitamin K 10 ML, Zinc/Copper/Man... IV SCH ×4 (13:32)
[2022-04-11] MEDS ORDERED: Iopamidol 612 MG/ML 50 ML SDV PO STA (01:38)
[2022-04-11] MEDS: Insulin Lispro 100 Unit/ML 3 ML KwikPen SUBCUT SCH ×4 (04:09→21:13)
[2022-04-11] MEDS: Heparin Sodium 5,000 Units/ML Vial SUBCUT SCH ×2 (05:14→17:38)
[2022-04-11] MEDS: Acetaminophen 500 MG Tab PO SCH ×3 (05:14→21:10)
[2022-04-11] MEDS ORDERED: Meropenem 500 MG SDV ONE (06:39)
[2022-04-11] MEDS ORDERED: Lidocaine 1% with EPINEPHrine 1:100,000 50 ML MDV ONE (06:39)
[2022-04-11] MEDS ORDERED: Bupivacaine 0.5% 30 ML SDV ONE (06:39)
[2022-04-11] MEDS ORDERED: Ropivacaine 40 ML, dexAMETHasone 8 MG, EPINEPHrine 0.4 MG, Sodium Chloride 0.9% 37.6 ML NERVRT SCH ×4 (07:15)
[2022-04-11] MEDS: SCOPOLAMINE PATCH CHECK TOP SCH (08:42)
[2022-04-11] MEDS: Celecoxib 200 MG Cap PO SCH ×2 (08:42→21:10)
[2022-04-11] MEDS: Lisinopril 20 MG Tab PO SCH (08:43)
[2022-04-11] MEDS ORDERED: Cyanocobalamin (Vitamin B12) 1,000 MCG/ML SDV IM ONE (09:00)
[2022-04-11] MEDS: Dextrose 5%-Lactated Ringers 1,000 ML IV SCH (09:20)
[2022-04-11] MEDS: Pantoprazole 40 MG Vial IVPUSH SCH (10:13)
[2022-04-11] MEDS: HYDROmorphone/Normal Saline 6 MG/30 ML PCA Vial IV PRN (11:41)
[2022-04-11] MEDS: AA 5%/Calcium/D15W/Lytes 2,000 ML with MVI, Adult with Vitamin K 10 ML, Zinc/Copper/Man... IV SCH ×4 (13:09)
[2022-04-11] MEDS: Ondansetron 4 MG/2 ML SDV IVPUSH PRN (19:58)
[2022-04-11] MEDS: Metoclopramide 10 MG/2 ML SDV IVPUSH PRN (23:42)
[2022-04-12 06:35] LABS: ESTIMATED GFR 95 mL/min (>60)
[2022-04-12] MEDS ORDERED: Meropenem 500 MG SDV ONE (06:38)
[2022-04-12] MEDS ORDERED: Bupivacaine 0.5% 30 ML SDV ONE (06:38)
[2022-04-12] MEDS ORDERED: Lidocaine 1% with EPINEPHrine 1:100,000 50 ML MDV ONE (06:38)
[2022-04-12] MEDS ORDERED: Propofol 200 MG/20 ML SDV ONE ×2 (06:56→07:57)
[2022-04-12] MEDS ORDERED: Ropivacaine 40 ML, dexAMETHasone 8 MG, EPINEPHrine 0.4 MG, Sodium Chloride 0.9% 37.6 ML NERVRT SCH ×4 (07:15)
[2022-04-12] MEDS ORDERED: Glycopyrrolate 0.2 MG/ML 2 ML SDV IVPUSH ONE (07:15)
[2022-04-12] MEDS: SCOPOLAMINE PATCH CHECK TOP SCH (09:52)
[2022-04-12] MEDS: Acetaminophen 500 MG Tab PO SCH ×3 (09:52→22:27)
[2022-04-12] MEDS: Heparin Sodium 5,000 Units/ML Vial SUBCUT SCH ×2 (09:56→17:30)
[2022-04-12] MEDS: Celecoxib 200 MG Cap PO SCH ×2 (09:57→20:31)
[2022-04-12] MEDS: Lisinopril 20 MG Tab PO SCH (09:57)
[2022-04-12] MEDS: Metoclopramide 10 MG/2 ML SDV IVPUSH SCH ×3 (09:58→22:28)
[2022-04-12] MEDS: Pantoprazole 40 MG Vial IVPUSH SCH (09:59)
[2022-04-12] MEDS: Insulin Lispro 100 Unit/ML 3 ML KwikPen SUBCUT SCH ×5 (10:12→22:30)
[2022-04-12] MEDS: HYDROmorphone/Normal Saline 6 MG/30 ML PCA Vial IV PRN (10:32)
[2022-04-12] MEDS: AA 5%/Calcium/D15W/Lytes 2,000 ML with MVI, Adult with Vitamin K 10 ML, Zinc/Copper/Man... IV SCH ×4 (12:51)
[2022-04-12] MEDS: Dextrose 5%-Lactated Ringers 1,000 ML IV SCH (21:25)
[2022-04-13] MEDS: Insulin Lispro 100 Unit/ML 3 ML KwikPen SUBCUT SCH ×4 (04:41→22:08)
[2022-04-13] MEDS: Metoclopramide 10 MG/2 ML SDV IVPUSH SCH ×4 (04:49→22:09)
[2022-04-13] MEDS: Acetaminophen 500 MG Tab PO SCH ×4 (05:03→22:19)
[2022-04-13] MEDS: Heparin Sodium 5,000 Units/ML Vial SUBCUT SCH ×2 (05:03→17:54)
[2022-04-13 05:08] LABS: ESTIMATED GFR 95 mL/min (>60)
[2022-04-13] MEDS ORDERED: Central Total Parenteral Nutrition Bag SCH (07:45)
[2022-04-13] MEDS: Lisinopril 20 MG Tab PO SCH (09:05)
[2022-04-13] MEDS: SCOPOLAMINE PATCH CHECK TOP SCH (09:07)
[2022-04-13] MEDS: Celecoxib 200 MG Cap PO SCH ×2 (09:07→20:12)
[2022-04-13] MEDS: Scopolamine 1.5 MG Transdermal Patch TOP SCH (09:08)
[2022-04-13] MEDS: Pantoprazole 40 MG Vial IVPUSH SCH (11:23)
[2022-04-13] MEDS: AA 5%/Calcium/D15W/Lytes 2,000 ML with MVI, Adult with Vitamin K 10 ML, Zinc/Copper/Man... IV SCH ×4 (13:00)
[2022-04-13] MEDS: hydrOXYzine HCL 100 MG/2 ML SDV IM PRN (15:05)
[2022-04-14] MEDS: Heparin Sodium 5,000 Units/ML Vial SUBCUT SCH ×2 (05:17→17:51)
[2022-04-14] MEDS: Acetaminophen 500 MG Tab PO SCH (05:17)
[2022-04-14] MEDS: Metoclopramide 10 MG/2 ML SDV IVPUSH SCH ×4 (05:18→21:37)
[2022-04-14] MEDS: Insulin Lispro 100 Unit/ML 3 ML KwikPen SUBCUT SCH ×4 (05:38→22:23)
[2022-04-14 05:55] LABS: ESTIMATED GFR 95 mL/min (>60)
[2022-04-14] MEDS ORDERED: Central Total Parenteral Nutrition Bag SCH (07:15)
[2022-04-14] MEDS: HYDROmorphone/Normal Saline 6 MG/30 ML PCA Vial IV PRN (07:45)
[2022-04-14] MEDS: Albumin Human 25 GM in Premix Bag 1 BAG IV SCH (09:23)
[2022-04-14] MEDS: SCOPOLAMINE PATCH CHECK TOP SCH (10:16)
[2022-04-14] MEDS: Celecoxib 200 MG Cap PO SCH ×2 (10:19→21:37)
[2022-04-14] MEDS: Lisinopril 20 MG Tab PO SCH (10:19)
[2022-04-14] MEDS: Acetaminophen 325 MG Tab PO SCH ×3 (10:20→21:37)
[2022-04-14] MEDS: Pantoprazole 40 MG Vial IVPUSH SCH (10:37)
[2022-04-14] MEDS: 1: AA 5%/Calcium/D15W/Lytes 1,000 ML with MVI, Adult with Vitamin K 10 ML, Zinc/Copper/M IV SCH ×4 (12:55)
[2022-04-14] MEDS ORDERED: 1: AA 5%/Calcium/D15W/Lytes 1,000 ML with MVI, Adult with Vitamin K 10 ML, Zinc/Copper/M IV SCH ×4 (13:00)
[2022-04-14] MEDS: hydrOXYzine HCL 100 MG/2 ML SDV IM PRN (14:49)
[2022-04-14] MEDS: Dextrose 5%-Lactated Ringers 1,000 ML IV SCH (17:51)
[2022-04-14] MEDS: Ondansetron 4 MG/2 ML SDV IVPUSH PRN (19:11)
[2022-04-14] MEDS ORDERED: Benzocaine/Cetylpyridinium/Menthol Lozenge MUCMEM PRN (21:10)
[2022-04-15] MEDS: Metoclopramide 10 MG/2 ML SDV IVPUSH SCH ×4 (04:45→21:02)
[2022-04-15] MEDS: Acetaminophen 325 MG Tab PO SCH ×4 (04:46→21:02)
[2022-04-15] MEDS: HYDROmorphone/Normal Saline 6 MG/30 ML PCA Vial IV PRN (04:53)
[2022-04-15] MEDS: Heparin Sodium 5,000 Units/ML Vial SUBCUT SCH ×2 (05:02→18:01)
[2022-04-15 05:09] LABS: ESTIMATED GFR 95 mL/min (>60)
[2022-04-15] MEDS: 1: AA 5%/Calcium/D15W/Lytes 1,000 ML with MVI, Adult with Vitamin K 10 ML, Zinc/Copper/M IV SCH ×8 (05:23→22:12)
[2022-04-15] MEDS: Insulin Lispro 100 Unit/ML 3 ML KwikPen SUBCUT SCH ×4 (05:27→22:12)
[2022-04-15] MEDS ORDERED: Central Total Parenteral Nutrition Bag SCH (07:30)
[2022-04-15] MEDS: Celecoxib 200 MG Cap PO SCH ×2 (10:14→20:48)
[2022-04-15] MEDS: SCOPOLAMINE PATCH CHECK TOP SCH (10:15)
[2022-04-15] MEDS: Lisinopril 20 MG Tab PO SCH (10:15)
[2022-04-15] MEDS: Pantoprazole 40 MG Vial IVPUSH SCH (10:18)
[2022-04-15] MEDS: Albumin Human 25 GM in Premix Bag 1 BAG IV SCH (11:29)
[2022-04-15] MEDS: Ondansetron 4 MG/2 ML SDV IVPUSH PRN (11:29)
[2022-04-15] MEDS: hydrOXYzine HCL 100 MG/2 ML SDV IM PRN (20:48)
[2022-04-16] MEDS: Insulin Lispro 100 Unit/ML 3 ML KwikPen SUBCUT SCH ×4 (04:06→22:40)
[2022-04-16] MEDS: Metoclopramide 10 MG/2 ML SDV IVPUSH SCH ×2 (04:37→10:54)
[2022-04-16] MEDS: Acetaminophen 325 MG Tab PO SCH ×2 (04:37→10:57)
[2022-04-16 05:09] LABS: ESTIMATED GFR 95 mL/min (>60)
[2022-04-16] MEDS: Heparin Sodium 5,000 Units/ML Vial SUBCUT SCH ×2 (06:39→17:48)
[2022-04-16] MEDS ORDERED: Propofol 200 MG/20 ML SDV ONE (07:05)
[2022-04-16] MEDS ORDERED: fentaNYL 50 MCG/ML SDV ONE (07:05)
[2022-04-16] MEDS ORDERED: Pantoprazole 40 MG Tab.CR PO SCH (07:30)
[2022-04-16] MEDS ORDERED: cefOXitin 2 GM in Sodium Chloride 0.9% 50 ML IV ONE (08:15)
[2022-04-16] MEDS ORDERED: Meropenem 500 MG SDV ONE (08:42)
[2022-04-16] MEDS ORDERED: Bupivacaine 0.5% 50 ML MDV ONE (08:49)
[2022-04-16] MEDS ORDERED: Lidocaine 1% with EPINEPHrine 1:100,000 50 ML MDV ONE (08:50)
[2022-04-16] MEDS ORDERED: Clindamycin Phosphate in D5W 900 MG in Premix Bag 1 BAG IV ONE ×2 (09:00)
[2022-04-16] MEDS ORDERED: fentaNYL 50 MCG/ML SDV IV PRN (09:00)
[2022-04-16] MEDS ORDERED: Succinylcholine 200 MG/10 ML MDV ONE (09:13)
[2022-04-16] MEDS ORDERED: Lactated Ringers 1,000 ML ONE (09:13)
[2022-04-16] MEDS ORDERED: fentaNYL 100 MCG/2 ML SDV ONE (09:40)
[2022-04-16] MEDS: HYDROmorphone/Normal Saline 6 MG/30 ML PCA Vial IV PRN (10:06)
[2022-04-16] MEDS: SCOPOLAMINE PATCH CHECK TOP SCH (10:38)
[2022-04-16] MEDS: Albumin Human 25 GM in Premix Bag 1 BAG IV SCH (10:38)
[2022-04-16] MEDS: Dextrose 5%-Lactated Ringers 1,000 ML IV SCH (10:41)
[2022-04-16] MEDS: Lisinopril 20 MG Tab PO SCH (10:53)
[2022-04-16] MEDS: Celecoxib 200 MG Cap PO SCH (10:53)
[2022-04-16] MEDS: Scopolamine 1.5 MG Transdermal Patch TOP SCH (10:54)
[2022-04-16] MEDS: Pantoprazole 40 MG Vial IVPUSH SCH (11:10)
[2022-04-16] MEDS ORDERED: Furosemide 40 MG/4 ML VIAL IVPUSH ONE (13:00)
[2022-04-16] MEDS ORDERED: Acetaminophen 1,000 MG in Premix Bag 1 BAG IV ONE (13:15)
[2022-04-16] MEDS ORDERED: HYDROmorphone 0.5 MG/0.5 ML Syringe IVPUSH PRN (13:21)
[2022-04-16] MEDS: Linezolid 600 MG in Premix Bag 1 BAG IV SCH (13:34)
[2022-04-16] MEDS: Meropenem 1 GM in Sodium Chloride 0.9% 100 ML IV SCH ×2 (14:29→22:27)
[2022-04-16] MEDS ORDERED: Acetaminophen 650 MG Supp RECTAL PRN (16:00)
[2022-04-16] MEDS: 1: AA 5%/Calcium/D15W/Lytes 1,000 ML with MVI, Adult with Vitamin K 10 ML, Zinc/Copper/M IV SCH ×4 (16:02)
[2022-04-16] MEDS ORDERED: Clindamycin Phosphate in D5W 900 MG in Premix Bag 1 BAG IV SCH ×2 (18:00)
[2022-04-17] MEDS: HYDROmorphone/Normal Saline 6 MG/30 ML PCA Vial IV PRN ×2 (00:32→20:17)
[2022-04-17] MEDS: Linezolid 600 MG in Premix Bag 1 BAG IV SCH ×2 (01:21→12:41)
[2022-04-17] MEDS: 1: AA 5%/Calcium/D15W/Lytes 1,000 ML with MVI, Adult with Vitamin K 10 ML, Zinc/Copper/M IV SCH ×8 (04:15→16:20)
[2022-04-17] MEDS: Heparin Sodium 5,000 Units/ML Vial SUBCUT SCH ×3 (04:44→17:46)
[2022-04-17 04:45] LABS: ESTIMATED GFR 95 mL/min (>60)
[2022-04-17] MEDS: Meropenem 1 GM in Sodium Chloride 0.9% 100 ML IV SCH ×4 (04:45→21:53)
[2022-04-17] MEDS: Insulin Lispro 100 Unit/ML 3 ML KwikPen SUBCUT SCH ×4 (05:08→21:48)
[2022-04-17] MEDS ORDERED: Furosemide 20 MG/2 ML VIAL IVPUSH ONE (06:06)
[2022-04-17] MEDS ORDERED: Albuterol 0.083% 2.5 MG/3 ML Neb Soln NEB PRN (06:07)
[2022-04-17] MEDS ORDERED: Albuterol 0.083% 2.5 MG/3 ML Neb Soln ONE (06:09)
[2022-04-17] MEDS ORDERED: Furosemide 20 MG/2 ML VIAL ONE (06:09)
[2022-04-17] MEDS ORDERED: LORazepam 2 MG/ML SDV ONE (07:53)
[2022-04-17] MEDS: LORazepam 2 MG/ML SDV IV PRN ×2 (07:55→21:54)
[2022-04-17] MEDS ORDERED: Albuterol/Ipratropium 3.0-0.5 MG/3 ML Neb Soln INH PRN ×2 (08:04→08:05)
[2022-04-17] MEDS: Lisinopril 20 MG Tab PO SCH (09:29)
[2022-04-17] MEDS: SCOPOLAMINE PATCH CHECK TOP SCH (09:29)
[2022-04-17] MEDS: Magnesium Sulfate/Water 2 GM in Premix Bag 1 BAG IV SCH ×3 (10:26→21:50)
[2022-04-17] MEDS: Albuterol/Ipratropium 3.0-0.5 MG/3 ML Neb Soln INH SCH ×3 (11:21→20:30)
[2022-04-17] MEDS: Pantoprazole 40 MG Vial IVPUSH SCH (11:22)
[2022-04-17] MEDS ORDERED: Furosemide 20 MG/2 ML VIAL IV ONE (12:00)
[2022-04-17] MEDS ORDERED: Furosemide 40 MG/4 ML VIAL IV ONE (12:00)
[2022-04-17] MEDS ORDERED: Acetaminophen 325 MG Tab PO PRN (12:28)
[2022-04-17] MEDS: Cyclobenzaprine 10 MG Tab PO PRN ×2 (14:15→21:53)
[2022-04-17] MEDS: Furosemide 40 MG/4 ML VIAL IVPUSH SCH (20:30)
[2022-04-18] MEDS: Linezolid 600 MG in Premix Bag 1 BAG IV SCH ×2 (01:37→13:05)
[2022-04-18] MEDS: Insulin Lispro 100 Unit/ML 3 ML KwikPen SUBCUT SCH ×4 (04:30→22:58)
[2022-04-18] MEDS: Magnesium Sulfate/Water 2 GM in Premix Bag 1 BAG IV SCH ×4 (04:33→22:44)
[2022-04-18] MEDS: 1: AA 5%/Calcium/D15W/Lytes 1,000 ML with MVI, Adult with Vitamin K 10 ML, Zinc/Copper/M IV SCH ×8 (04:47→17:01)
[2022-04-18 04:52] LABS: ESTIMATED GFR 95 mL/min (>60)
[2022-04-18] MEDS: Meropenem 1 GM in Sodium Chloride 0.9% 100 ML IV SCH ×3 (05:30→23:00)
[2022-04-18] MEDS: Furosemide 40 MG/4 ML VIAL IVPUSH SCH (05:30)
[2022-04-18] MEDS: Heparin Sodium 5,000 Units/ML Vial SUBCUT SCH ×2 (05:30→17:59)
[2022-04-18] MEDS ORDERED: Potassium Chloride 10 MEQ in Premix Bag 1 BAG IV SCH (06:00)
[2022-04-18] MEDS: Albuterol/Ipratropium 3.0-0.5 MG/3 ML Neb Soln INH SCH ×4 (07:00→20:55)
[2022-04-18] MEDS ORDERED: Central Total Parenteral Nutrition Bag SCH (07:30)
[2022-04-18] MEDS: SCOPOLAMINE PATCH CHECK TOP SCH (08:15)
[2022-04-18] MEDS: Lisinopril 20 MG Tab PO SCH (08:16)
[2022-04-18] MEDS: Dextrose 5%-Lactated Ringers 1,000 ML IV SCH (09:49)
[2022-04-18] MEDS: Pantoprazole 40 MG Vial IVPUSH SCH (11:24)
[2022-04-18] MEDS ORDERED: Potassium Chloride Riders 40 MEQ in Premix Bag 1 BAG IV ONE ×2 (12:00→18:00)
[2022-04-18] MEDS ORDERED: Furosemide 20 MG/2 ML VIAL IVPUSH ONE ×2 (12:15→20:00)
[2022-04-18] MEDS: Cyclobenzaprine 10 MG Tab PO PRN (16:39)
[2022-04-18] MEDS ORDERED: fentaNYL/Normal Saline 600 MCG/30 ML PCA Vial IV SCH (18:45)
[2022-04-19] MEDS: Linezolid 600 MG in Premix Bag 1 BAG IV SCH ×2 (01:23→12:42)
[2022-04-19] MEDS: Insulin Lispro 100 Unit/ML 3 ML KwikPen SUBCUT SCH ×4 (04:18→21:10)
[2022-04-19] MEDS: Magnesium Sulfate/Water 2 GM in Premix Bag 1 BAG IV SCH (04:19)
[2022-04-19] MEDS: 1: AA 5%/Calcium/D15W/Lytes 1,000 ML with MVI, Adult with Vitamin K 10 ML, Zinc/Copper/M IV SCH ×8 (05:02→16:27)
[2022-04-19 05:13] LABS: ESTIMATED GFR 95 mL/min (>60)
[2022-04-19] MEDS: Heparin Sodium 5,000 Units/ML Vial SUBCUT SCH ×2 (06:34→17:36)
[2022-04-19] MEDS: Meropenem 1 GM in Sodium Chloride 0.9% 100 ML IV SCH ×3 (06:35→21:11)
[2022-04-19] MEDS: Albuterol/Ipratropium 3.0-0.5 MG/3 ML Neb Soln INH SCH ×4 (07:10→21:00)
[2022-04-19] MEDS ORDERED: Central Total Parenteral Nutrition Bag SCH (07:15)
[2022-04-19] MEDS ORDERED: Scopolamine 1.5 MG Transdermal Patch TRDERM SCH (07:15)
[2022-04-19] MEDS: Furosemide 20 MG/2 ML VIAL IVPUSH SCH ×2 (08:38→13:36)
[2022-04-19] MEDS: Potassium Chloride 10 MEQ in Premix Bag 1 BAG IV SCH ×4 (09:08→12:37)
[2022-04-19] MEDS: Lisinopril 20 MG Tab PO SCH (09:13)
[2022-04-19] MEDS: Scopolamine 1.5 MG Transdermal Patch TOP SCH (09:14)
[2022-04-19] MEDS ORDERED: fentaNYL/Normal Saline 600 MCG/30 ML PCA Vial IV SCH (09:15)
[2022-04-19] MEDS: SCOPOLAMINE PATCH CHECK TOP SCH (09:19)
[2022-04-19] MEDS: Ondansetron 4 MG/2 ML SDV IVPUSH PRN ×2 (10:44→17:36)
[2022-04-19] MEDS: Pantoprazole 40 MG Vial IVPUSH SCH (11:18)
[2022-04-19] MEDS: Melatonin 3 MG Tab PO SCH (21:00)
[2022-04-20] MEDS: Linezolid 600 MG in Premix Bag 1 BAG IV SCH ×2 (01:00→12:33)
[2022-04-20] MEDS: Cyclobenzaprine 10 MG Tab PO PRN (03:12)
[2022-04-20] MEDS: Ondansetron 4 MG/2 ML SDV IVPUSH PRN ×3 (03:18→20:44)
[2022-04-20] MEDS: Insulin Lispro 100 Unit/ML 3 ML KwikPen SUBCUT SCH ×3 (03:25→16:11)
[2022-04-20] MEDS ORDERED: Iopamidol 612 MG/ML 50 ML SDV PO STA (03:53)
[2022-04-20] MEDS: 1: AA 5%/Calcium/D15W/Lytes 1,000 ML with MVI, Adult with Vitamin K 10 ML, Zinc/Copper/M IV SCH ×4 (04:19)
[2022-04-20] MEDS: hydrOXYzine HCL 100 MG/2 ML SDV IM PRN (04:52)
[2022-04-20] MEDS: Meropenem 1 GM in Sodium Chloride 0.9% 100 ML IV SCH ×3 (05:12→21:02)
[2022-04-20] MEDS: Heparin Sodium 5,000 Units/ML Vial SUBCUT SCH ×2 (05:12→18:11)
[2022-04-20 05:42] LABS: ESTIMATED GFR 99 mL/min (>60)
[2022-04-20] MEDS ORDERED: Central Total Parenteral Nutrition Bag SCH (07:30)
[2022-04-20] MEDS: Albuterol/Ipratropium 3.0-0.5 MG/3 ML Neb Soln INH SCH ×4 (07:34→20:50)
[2022-04-20] MEDS: Lisinopril 20 MG Tab PO SCH (08:14)
[2022-04-20] MEDS: Furosemide 20 MG/2 ML VIAL IVPUSH SCH ×2 (08:14→20:50)
[2022-04-20] MEDS: SCOPOLAMINE PATCH CHECK TOP SCH (08:14)
[2022-04-20] MEDS: Pantoprazole 40 MG Vial IVPUSH SCH (10:48)
[2022-04-20] MEDS ORDERED: Prochlorperazine 10 MG/2 ML SDV IVPUSH PRN (12:18)
[2022-04-20] MEDS: AA 5%/Calcium/D15W/Lytes 2,000 ML with MVI, Adult with Vitamin K 10 ML, Zinc/Copper/Man... IV SCH ×4 (16:13)
[2022-04-20] MEDS: Melatonin 3 MG Tab PO SCH (20:49)
[2022-04-20] MEDS: hydrOXYzine HCl 25 MG Tab PO SCH (20:50)
[2022-04-20] MEDS: Dextrose 5%-Lactated Ringers 1,000 ML IV SCH (21:02)
[2022-04-21] MEDS: Linezolid 600 MG in Premix Bag 1 BAG IV SCH ×2 (01:09→12:44)
[2022-04-21 04:52] LABS: ESTIMATED GFR 95 mL/min (>60)
[2022-04-21] MEDS: Meropenem 1 GM in Sodium Chloride 0.9% 100 ML IV SCH ×3 (06:11→21:31)
[2022-04-21] MEDS: Heparin Sodium 5,000 Units/ML Vial SUBCUT SCH ×2 (06:11→18:37)
[2022-04-21] MEDS: Albuterol/Ipratropium 3.0-0.5 MG/3 ML Neb Soln INH SCH ×4 (07:13→20:05)
[2022-04-21] MEDS ORDERED: Central Total Parenteral Nutrition Bag SCH (07:30)
[2022-04-21] MEDS: SCOPOLAMINE PATCH CHECK TOP SCH (08:36)
[2022-04-21] MEDS: Furosemide 20 MG/2 ML VIAL IVPUSH SCH ×3 (08:36→20:05)
[2022-04-21] MEDS: Albumin Human 25 GM in Premix Bag 1 BAG IV SCH (08:36)
[2022-04-21] MEDS: Lisinopril 20 MG Tab PO SCH (08:37)
[2022-04-21] MEDS: Pantoprazole 40 MG Vial IVPUSH SCH (10:50)
[2022-04-21] MEDS: AA 5%/Calcium/D15W/Lytes 2,000 ML with MVI, Adult with Vitamin K 10 ML, Zinc/Copper/Man... IV SCH ×4 (16:35)
[2022-04-21] MEDS: Melatonin 3 MG Tab PO SCH (20:00)
[2022-04-21] MEDS: hydrOXYzine HCl 25 MG Tab PO SCH (20:01)
[2022-04-22] MEDS: Linezolid 600 MG in Premix Bag 1 BAG IV SCH ×2 (01:20→13:00)
[2022-04-22 04:49] LABS: ESTIMATED GFR 95 mL/min (>60)
[2022-04-22] MEDS: Ondansetron 4 MG/2 ML SDV IVPUSH PRN (04:49)
[2022-04-22] MEDS: Heparin Sodium 5,000 Units/ML Vial SUBCUT SCH ×2 (05:03→17:53)
[2022-04-22] MEDS: Meropenem 1 GM in Sodium Chloride 0.9% 100 ML IV SCH ×3 (05:03→22:04)
[2022-04-22] MEDS: Albuterol/Ipratropium 3.0-0.5 MG/3 ML Neb Soln INH SCH ×4 (07:10→22:01)
[2022-04-22] MEDS ORDERED: Propofol 200 MG/20 ML SDV ONE ×2 (07:27→10:10)
[2022-04-22] MEDS ORDERED: fentaNYL 50 MCG/ML SDV ONE (07:27)
[2022-04-22] MEDS ORDERED: Central Total Parenteral Nutrition Bag SCH (07:30)
[2022-04-22] MEDS: Albumin Human 25 GM in Premix Bag 1 BAG IV SCH (07:42)
[2022-04-22] MEDS: Furosemide 20 MG/2 ML VIAL IVPUSH SCH ×2 (08:07→20:16)
[2022-04-22] MEDS: SCOPOLAMINE PATCH CHECK TOP SCH (08:11)
[2022-04-22] MEDS: Potassium Chloride 20 MEQ in Premix Bag 1 BAG IV SCH ×3 (08:19→14:57)
[2022-04-22] MEDS: Scopolamine 1.5 MG Transdermal Patch TOP SCH (08:23)
[2022-04-22] MEDS: Pantoprazole 40 MG Vial IVPUSH SCH (11:36)
[2022-04-22] MEDS: Dextrose 5%-Lactated Ringers 1,000 ML IV SCH (11:46)
[2022-04-22] MEDS: Lisinopril 20 MG Tab PO SCH (13:57)
[2022-04-22] MEDS: AA 5%/Calcium/D15W/Lytes 2,000 ML with MVI, Adult with Vitamin K 10 ML, Zinc/Copper/Man... IV SCH ×4 (18:37)
[2022-04-22] MEDS: Melatonin 3 MG Tab PO SCH (22:03)
[2022-04-22] MEDS: hydrOXYzine HCl 25 MG Tab PO SCH (22:04)
[2022-04-23] MEDS: Linezolid 600 MG in Premix Bag 1 BAG IV SCH (01:32)
[2022-04-23 05:11] LABS: ESTIMATED GFR 95 mL/min (>60)
[2022-04-23] MEDS: Heparin Sodium 5,000 Units/ML Vial SUBCUT SCH ×2 (05:28→17:12)
[2022-04-23] MEDS: Meropenem 1 GM in Sodium Chloride 0.9% 100 ML IV SCH ×3 (05:31→22:18)
[2022-04-23] MEDS: Albuterol/Ipratropium 3.0-0.5 MG/3 ML Neb Soln INH SCH ×4 (07:09→22:13)
[2022-04-23] MEDS: Albumin Human 25 GM in Premix Bag 1 BAG IV SCH (07:33)
[2022-04-23] MEDS: Lisinopril 20 MG Tab PO SCH (08:09)
[2022-04-23] MEDS: Furosemide 40 MG/4 ML VIAL IVPUSH SCH ×2 (08:09→17:11)
[2022-04-23] MEDS: SCOPOLAMINE PATCH CHECK TOP SCH (08:10)
[2022-04-23] MEDS: Potassium Phos in 0.9 % NaCl 15 MMOL in Premix Bag 1 BAG IV SCH ×6 (08:10→14:01)
[2022-04-23] MEDS: Pantoprazole 40 MG Vial IVPUSH SCH (11:04)
[2022-04-23] MEDS: fentaNYL 12 MCG/HR Transdermal Patch TRDERM SCH (11:07)
[2022-04-23] MEDS ORDERED: Albuterol/Ipratropium 3.0-0.5 MG/3 ML Neb Soln NEB SCH (15:00)
[2022-04-23] MEDS: Diclofenac Sodium 1% Gel 100 GM Tube TOP SCH ×2 (17:11→22:38)
[2022-04-23] MEDS: AA 5%/Calcium/D15W/Lytes 2,000 ML with MVI, Adult with Vitamin K 10 ML, Zinc/Copper/Man... IV SCH ×4 (20:01)
[2022-04-23] MEDS: hydrOXYzine HCl 25 MG Tab PO SCH (22:17)
[2022-04-23] MEDS: Melatonin 3 MG Tab PO SCH (22:17)
[2022-04-24] MEDS: Heparin Sodium 5,000 Units/ML Vial SUBCUT SCH ×2 (05:41→18:03)
[2022-04-24] MEDS: Diclofenac Sodium 1% Gel 100 GM Tube TOP SCH ×4 (05:42→22:06)
[2022-04-24 06:35] LABS: ESTIMATED GFR 95 mL/min (>60)
[2022-04-24] MEDS: Albuterol/Ipratropium 3.0-0.5 MG/3 ML Neb Soln INH SCH ×4 (07:30→22:06)
[2022-04-24] MEDS: Furosemide 40 MG/4 ML VIAL IV SCH ×2 (09:10→16:28)
[2022-04-24] MEDS: Bisacodyl 10 MG Supp RECTAL SCH ×2 (09:11→14:58)
[2022-04-24] MEDS: Lisinopril 20 MG Tab PO SCH ×2 (09:11→10:00)
[2022-04-24] MEDS ORDERED: LORazepam ORAL Concentrate 1MG/0.5ML U/D PO PRN (09:38)
[2022-04-24] MEDS: SCOPOLAMINE PATCH CHECK TOP SCH (10:00)
[2022-04-24] MEDS ORDERED: AA 5%/Calcium/D15W/Lytes 2,000 ML with MVI, Adult with Vitamin K 10 ML, Zinc/Copper/Man... IV SCH ×4 (10:15)
[2022-04-24] MEDS: Pantoprazole 40 MG Vial IVPUSH SCH (11:43)
[2022-04-24] MEDS: Morphine 10 MG/0.5 ML Oral Syringe PO PRN (14:58)
[2022-04-24] MEDS ORDERED: 1: AA 5%/Calcium/D15W/Lytes 1,000 ML with MVI, Adult with Vitamin K 10 ML, Zinc/Copper/M IV SCH ×4 (16:30)
[2022-04-24] MEDS: Melatonin 3 MG Tab PO SCH (22:05)
[2022-04-24] MEDS: hydrOXYzine HCl 25 MG Tab PO SCH (22:05)
[2022-04-25] MEDS: Bisacodyl 10 MG Supp RECTAL SCH (03:08)
[2022-04-25] MEDS: Morphine 10 MG/0.5 ML Oral Syringe PO PRN ×2 (04:25→08:53)
[2022-04-25 05:00] LABS: ESTIMATED GFR 95 mL/min (>60)
[2022-04-25] MEDS: Heparin Sodium 5,000 Units/ML Vial SUBCUT SCH ×2 (06:08→17:42)
[2022-04-25] MEDS: Diclofenac Sodium 1% Gel 100 GM Tube TOP SCH ×4 (06:09→21:43)
[2022-04-25] MEDS: Albuterol/Ipratropium 3.0-0.5 MG/3 ML Neb Soln INH SCH ×4 (07:00→20:35)
[2022-04-25] MEDS: Melatonin 3 MG Tab PO SCH ×3 (07:14→20:41)
[2022-04-25] MEDS ORDERED: Central Total Parenteral Nutrition Bag SCH (07:15)
[2022-04-25] MEDS ORDERED: Bisacodyl 10 MG Supp RECTAL PRN (08:11)
[2022-04-25] MEDS: Lisinopril 20 MG Tab PO SCH (08:53)
[2022-04-25] MEDS: Furosemide 20 MG/2 ML VIAL IVPUSH SCH ×2 (08:54→20:36)
[2022-04-25] MEDS: SCOPOLAMINE PATCH CHECK TOP SCH (08:54)
[2022-04-25] MEDS: Scopolamine 1.5 MG Transdermal Patch TOP SCH (08:54)
[2022-04-25] MEDS: Pantoprazole 40 MG Vial IVPUSH SCH (11:10)
[2022-04-25] MEDS: hydrOXYzine HCl 25 MG Tab PO SCH (20:36)
[2022-04-25] MEDS: Cyclobenzaprine 10 MG Tab PO PRN (21:25)
[2022-04-26] MEDS: 1: AA 5%/Calcium/D15W/Lytes 1,000 ML with MVI, Adult with Vitamin K 10 ML, Zinc/Copper/M IV SCH ×8 (00:59→22:19)
[2022-04-26 04:44] LABS: ESTIMATED GFR 91 mL/min (>60)
[2022-04-26] MEDS: Dextrose 5%-Lactated Ringers 1,000 ML IV SCH (05:11)
[2022-04-26] MEDS: Diclofenac Sodium 1% Gel 100 GM Tube TOP SCH ×4 (05:12→21:30)
[2022-04-26] MEDS: Heparin Sodium 5,000 Units/ML Vial SUBCUT SCH ×2 (05:14→17:24)
[2022-04-26] MEDS ORDERED: Potassium Chloride 20 MEQ, Lidocaine 1% 2 ML in Sodium Chloride 0.9% 100 ML IV SCH (07:15)
[2022-04-26] MEDS ORDERED: Central Total Parenteral Nutrition Bag SCH (07:15)
[2022-04-26] MEDS: Albuterol/Ipratropium 3.0-0.5 MG/3 ML Neb Soln INH SCH ×2 (07:19→11:05)
[2022-04-26] MEDS: Lisinopril 20 MG Tab PO SCH (08:18)
[2022-04-26] MEDS: Furosemide 20 MG/2 ML VIAL IVPUSH SCH (08:18)
[2022-04-26] MEDS: SCOPOLAMINE PATCH CHECK TOP SCH (08:18)
[2022-04-26] MEDS: [UNRECOGNIZED DRUG - REMARK] TOP SCH ×2 (08:19→21:29)
[2022-04-26] MEDS ORDERED: Potassium Chloride Riders 40 MEQ in Premix Bag 1 BAG IV ONE (08:30)
[2022-04-26] MEDS ORDERED: Potassium Phosphates 3 mMole/ML 15 ML SDV IV ONE (09:00)
[2022-04-26] MEDS: fentaNYL 12 MCG/HR Transdermal Patch TRDERM SCH (11:09)
[2022-04-26] MEDS: Pantoprazole 40 MG Vial IVPUSH SCH (11:10)
[2022-04-26] MEDS ORDERED: Potassium Chloride 20 MEQ in Premix Bag 1 BAG IV ONE (13:00)
[2022-04-26] MEDS: Morphine 10 MG/0.5 ML Oral Syringe PO PRN (13:19)
[2022-04-26] MEDS: Ondansetron 4 MG/2 ML SDV IVPUSH PRN (13:19)
[2022-04-26] MEDS: Potassium Phosphates 22.5 MMOLE in Sodium Chloride 0.9% 100 ML IV SCH ×2 (16:13→21:44)
[2022-04-26] MEDS: Melatonin 3 MG Tab PO SCH (21:29)
[2022-04-26] MEDS: hydrOXYzine HCl 25 MG Tab PO SCH (21:30)
[2022-04-27 05:03] LABS: ESTIMATED GFR 91 mL/min (>60)
[2022-04-27] MEDS: Diclofenac Sodium 1% Gel 100 GM Tube TOP SCH ×4 (05:42→21:59)
[2022-04-27] MEDS: Heparin Sodium 5,000 Units/ML Vial SUBCUT SCH ×2 (05:42→18:07)
[2022-04-27] MEDS: Furosemide 20 MG/2 ML VIAL IVPUSH SCH (09:03)
[2022-04-27] MEDS: SCOPOLAMINE PATCH CHECK TOP SCH (09:05)
[2022-04-27] MEDS: Lisinopril 20 MG Tab PO SCH (09:10)
[2022-04-27] MEDS: [UNRECOGNIZED DRUG - REMARK] TOP SCH ×2 (10:15→21:59)
[2022-04-27] MEDS: Cyclobenzaprine 10 MG Tab PO PRN (10:22)
[2022-04-27] MEDS: Dextrose 5%-Lactated Ringers 1,000 ML IV SCH ×2 (10:23→21:58)
[2022-04-27] MEDS: Pantoprazole 40 MG Vial IVPUSH SCH (11:26)
[2022-04-27] MEDS ORDERED: Furosemide 40 MG/4 ML VIAL IVPUSH ONE (16:00)
[2022-04-27] MEDS: hydrOXYzine HCl 25 MG Tab PO SCH (21:59)
[2022-04-27] MEDS: Melatonin 3 MG Tab PO SCH (22:00)
[2022-04-28] MEDS: Diclofenac Sodium 1% Gel 100 GM Tube TOP SCH (06:13)
[2022-04-28] MEDS: Heparin Sodium 5,000 Units/ML Vial SUBCUT SCH (06:13)
[2022-04-28] MEDS: SCOPOLAMINE PATCH CHECK TOP SCH (08:05)
[2022-04-28] MEDS: Furosemide 20 MG/2 ML VIAL IVPUSH SCH (08:05)
[2022-04-28] MEDS: [UNRECOGNIZED DRUG - REMARK] TOP SCH (08:06)
[2022-04-28] MEDS: Lisinopril 20 MG Tab PO SCH (08:52)
[2022-04-28] MEDS: Scopolamine 1.5 MG Transdermal Patch TOP SCH (08:56)
[2022-04-28] MEDS: Cyclobenzaprine 10 MG Tab PO PRN (08:59)
[2022-04-28] MEDS ORDERED: fentaNYL 12 MCG/HR Transdermal Patch TRDERM SCH (09:15)
== END 2022-04-28 10:15 | disposition hospice, inpatient (51) | DRG 405 ==
LOC: JP.ED 15:05 → JP.MS 19:07 → JP.ICU 04-16 13:00 → JP.MS 04-20 17:02
PROVIDERS: ADMIT Internal Medicine; ATTEND Internal Medicine
PROC: 0FT40ZZ Resection of Gallbladder, Open Approach (ICD-10-PCS; principal; 2022-03-28)
PROC: 0F900ZZ Drainage of Liver, Open Approach (ICD-10-PCS; 2022-03-28)
PROC: 0DB90ZZ Excision of Duodenum, Open Approach (ICD-10-PCS; 2022-03-28)
PROC: 0DB90ZZ Excision of Duodenum, Open Approach (ICD-10-PCS; 2022-03-28)
PROC: 0FB00ZZ Excision of Liver, Open Approach (ICD-10-PCS; 2022-03-28)
PROC: 0DJ08ZZ Inspection of Upper Intestinal Tract, Via Natural or Artificial Opening Endoscopic (ICD-10-PCS; 2022-03-28)
PROC: XW033N5 Introduction of Meropenem-vaborbactam Anti-infective into Peripheral Vein, Percutaneous Approach, New Technology Group 5 (ICD-10-PCS; 2022-03-28)
PROC: 30233N1 Transfusion of Nonautologous Red Blood Cells into Peripheral Vein, Percutaneous Approach (ICD-10-PCS; 2022-03-29)
PROC: 3E0336Z Introduction of Nutritional Substance into Peripheral Vein, Percutaneous Approach (ICD-10-PCS; 2022-03-29)
PROC: 02HV33Z Insertion of Infusion Device into Superior Vena Cava, Percutaneous Approach (ICD-10-PCS; 2022-03-29)
PROC: 0D9670Z Drainage of Stomach with Drainage Device, Via Natural or Artificial Opening (ICD-10-PCS; 2022-03-29)
PROC: 0WQF0ZZ Repair Abdominal Wall, Open Approach (ICD-10-PCS; 2022-04-01)
PROC: 0DJ08ZZ Inspection of Upper Intestinal Tract, Via Natural or Artificial Opening Endoscopic (ICD-10-PCS; 2022-04-01)
PROC: 0D160ZA Bypass Stomach to Jejunum, Open Approach (ICD-10-PCS; 2022-04-09)
PROC: 0DB80ZZ Excision of Small Intestine, Open Approach (ICD-10-PCS; 2022-04-09)
PROC: 3E0M05Z Introduction of Adhesion Barrier into Peritoneal Cavity, Open Approach (ICD-10-PCS; 2022-04-09)
PROC: 0WQF0ZZ Repair Abdominal Wall, Open Approach (ICD-10-PCS; 2022-04-12)
PROC: 0DCA8ZZ Extirpation of Matter from Jejunum, Via Natural or Artificial Opening Endoscopic (ICD-10-PCS; 2022-04-12)
PROC: 0DH60UZ Insertion of Feeding Device into Stomach, Open Approach (ICD-10-PCS; 2022-04-16)
PROC: 0DJ08ZZ Inspection of Upper Intestinal Tract, Via Natural or Artificial Opening Endoscopic (ICD-10-PCS; 2022-04-16)
PROC: 0BJ08ZZ Inspection of Tracheobronchial Tree, Via Natural or Artificial Opening Endoscopic (ICD-10-PCS; 2022-04-16)
PROC: 0D798DZ Dilation of Duodenum with Intraluminal Device, Via Natural or Artificial Opening Endoscopic (ICD-10-PCS; 2022-04-22)
DX: L02.211 Cutaneous abscess of abdominal wall (principal); R53.1 Weakness; R06.00 Dyspnea, unspecified; R10.13 Epigastric pain; K75.0 Abscess of liver; J69.0 Pneumonitis due to inhalation of food and vomit; I51.7 Cardiomegaly; J96.01 Acute respiratory failure with hypoxia; C23 Malignant neoplasm of gallbladder; K80.00 Calculus of gallbladder with acute cholecystitis without obstruction; K31.1 Adult hypertrophic pyloric stenosis; K56.7 Ileus, unspecified; N30.20 Other chronic cystitis without hematuria; E87.6 Hypokalemia; Z20.822 Contact with and (suspected) exposure to COVID-19; Z51.5 Encounter for palliative care; K31.84 Gastroparesis; T18.8XXA Foreign body in other parts of alimentary tract, initial encounter; K57.10 Diverticulosis of small intestine without perforation or abscess without bleeding; I10 Essential (primary) hypertension; Z90.49 Acquired absence of other specified parts of digestive tract; Z88.5 Allergy status to narcotic agent; Z88.8 Allergy status to other drugs, medicaments and biological substances; Z79.899 Other long term (current) drug therapy
CPT/HCPCS: 36415; 36430; 36569; 51702; 71045; 71045-26; 71046; 71046-26; 71260; 74018; 74018-26; 74177; 74240; 74240-26; 76000; 80048; 80053; 82330; 82378; 82947; 83605; 83690; 83735; 83880; 84100; 84132; 84484; 85025; 85027; 86140; 86301; 86850; 86900; 86901; 86920; 86922; 87040; 87070; 87075; 87205; 88304; 88307; 88341; 88342; 93005; 93010; 94640; 94667; 94668; 96361; 96365; 96368; 97110-GO; 97110-GP; 97162-GP; 97164-GP; 97165-GO; 97530-GP; 97535-GO; 97535-GP; 99222; 99232; 99239; 99285; 99285-25; A9270-GY; C1751; C1874; C9113; J0131; J0171; J0330; J0456; J0610; J0694; J0780; J1100; J1170; J1200; J1642; J1644; J1815; J1815-GY; J1940; J2001; J2020; J2060; J2185; J2405; J2543; J2704; J2710; J2765; J2795; J3010; J3410; J3411; J3420; J3475; J3480; J3490; J7120; J7121; J7620; P9016; P9047; Q9967; U0002